=== PATIENT | male | born 1990 | race African-American/Black ===

== ENCOUNTER 2020-08-21 15:44 | Inpatient (IN) ==
[2020-08-21 16:12] LABS: Basophils # (auto) 0.02 K/uL (0-0.2); Basophils % (auto) 0.2 %; Eosinophils % (auto) 1.2 %; Hematocrit (blood only) 45.1 % (42-52); Hemoglobin 14.7 g/dL (14.0-18.0); Immature Granulocytes # (auto) 0.01 K/uL (0.00-0.02); Immature Granulocytes % (auto) 0.1 %; Lymphocytes # (auto) 2.11 K/uL (1.2-3.4); Lymphocytes % (auto) 25.3 %; Mean Corpuscular Hemoglobin 28.6 pg (25-34); Mean Corpuscular Hgb Conc 32.6 g/dL (32-36); Mean Corpuscular Volume 87.7 fL (80-100); Monocytes % (auto) 10.8 %; Neutrophils % (auto) 62.4 %; Platelet Count 221 K/uL (130-400); RDW Coefficient of Variation 12.9 % (11.5-14.5); RDW Standard Deviation 41.3 fL (36.4-46.3); Red Blood Count 5.14 M/uL (4.7-6.1); White Blood Count 8.34 K/uL (4.8-10.8)
[2020-08-21] MEDS ORDERED: SODIUM CHLORIDE 0.9% 1000ML 1,000 ML IV SCH (16:15)
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
[2020-08-21] MEDS ORDERED: MoRPHine SULFATE 4 MG/ML 1 ML CARP\\VIAL IV STA ×2 (16:38→18:20)
[2020-08-21] MEDS ORDERED: ONDANSETRON INJ 2 MG/ML 2 ML VIAL IV STA (16:38)
[2020-08-21 16:44] LABS: Albumin Globulin Ratio 0.8 (0.9-2); Albumin Level 3.7 gm/dl (3.4-5.0); BUN Creatinine Ratio 10.3 (10-20); Bilirubin,Total 0.4 mg/dl (0.2-1); Calcium 8.8 mg/dl (8.5-10.1); Creatinine Clr Calc Pharmacy 148.4 ml/min; Est GFR (Non-African American) 97.5; Globulin 4.5 gm/dl (2.5-4.0); Total Protein 8.2 gm/dl (6.4-8.2)
[2020-08-21] MEDS ORDERED: OPTIRAY 320 125ml IV ONE (17:08)
[2020-08-21 17:15] LABS: Potassium 3.9 mmol/L (3.5-5.1)
[2020-08-21 17:20] LABS: Magnesium 1.7 mg/dl (1.8-2.4)
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
[2020-08-21] MEDS ORDERED: PIPERACILLIN/TAZOBACTAM 4.5 GM/120 ML BAG IV ONE (17:44)
[2020-08-21] MEDS ORDERED: PIPERACILL/TAZOBAC CONSULT ACTIVE PRN (17:44)
[2020-08-21 17:47] LABS: Appearance Urine Clear (Clear); Bilirubin Urine Negative (Negative); Blood Urine Negative (Negative); Color Urine Yellow; Glucose Urine UA 3+ (Negative); Ketones Urine Trace (Negative); Leukocyte Esterase Urine Negative (Negative); Nitrite Urine Negative (Negative); Protein Urine Negative (Negative); Specific Gravity Urine > 1.045 (1.000-1.030); Urobilinogen Urine Negative (Negative)
[2020-08-21 18:52] LABS: Influenza A virus by PCR Negative (Neg); Influenza B virus by PCR Negative (Neg); RSV by PCR Negative (Neg); SARS CoV2 RNA(COVID-19) InHosp NEGATIVE (Negative)
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
[2020-08-21] MEDS ORDERED: ONDANSETRON INJ 2 MG/ML 2 ML VIAL IV PRN (21:17)
[2020-08-21] MEDS ORDERED: INSULIN ASPART 100 UNITS/ML 3 ML PEN SC SCH (21:17)
[2020-08-21] MEDS: HYDROmorphone INJ 0.5 MG/0.5 ML SYR IV PRN (21:42)
[2020-08-21] MEDS: NSS + 20MEQ KCL 20 MEQ/1,000 ML BAG IV SCH (22:23)
[2020-08-21] MEDS: MAGNESIUM SULFATE / D5W 1 GM/100 ML BAG IV SCH ×2 (22:24→23:33)
[2020-08-21] MEDS: METOPROLOL TARTRATE 25 MG TAB PO SCH (22:25)
[2020-08-21] MEDS: INSULIN GLARGINE SOLOSTAR 100 UNITS/ML 3 ML PEN SC SCH (22:27)
[2020-08-21] MEDS: busPIRone 15 MG TAB PO SCH (22:32)
[2020-08-22] MEDS: PIPERACILLIN/TAZOBACTAM 4.5 GM in DEXTROSE 5% 100 ML IV SCH ×4 (00:36→22:47)
[2020-08-22] MEDS: HYDROmorphone INJ 0.5 MG/0.5 ML SYR IV PRN ×3 (00:46→08:25)
[2020-08-22] MEDS: NSS + 20MEQ KCL 20 MEQ/1,000 ML BAG IV SCH ×3 (04:54→19:59)
[2020-08-22] MEDS ORDERED: Nursing to Pharmacy Communication SCH ×2 (05:45→14:45)
[2020-08-22] MEDS ORDERED: GLUCOSE 40% GEL 15 GM TUBE PO PRN (06:00)
[2020-08-22] MEDS ORDERED: CARBOHYDRATES FOR HYPOGLYCEMIA PO PRN (06:00)
[2020-08-22] MEDS ORDERED: GLUCOSE 10 TABS/TUBE PO PRN (06:00)
[2020-08-22] MEDS ORDERED: DEXTROSE 50% 50 ML SYRINGE IV PRN (06:00)
[2020-08-22] MEDS ORDERED: GLUCAGON FOR INJ 1 MG VIAL IM PRN (06:00)
[2020-08-22 06:13] LABS: Basophils # (auto) 0.01 K/uL (0-0.2); Basophils % (auto) 0.1 %; Eosinophils # (auto) 0.08 K/uL (0-0.5); Eosinophils % (auto) 0.8 %; Hematocrit (blood only) 41.8 % (42-52); Hemoglobin 13.7 g/dL (14.0-18.0); Immature Granulocytes # (auto) 0.01 K/uL (0.00-0.02); Immature Granulocytes % (auto) 0.1 %; Lymphocytes % (auto) 16.6 %; Mean Corpuscular Hemoglobin 28.5 pg (25-34); Mean Corpuscular Hgb Conc 32.8 g/dL (32-36); Mean Corpuscular Volume 86.9 fL (80-100); Mean Platelet Volume 10.8 fL (7.4-10.4); Monocytes # (auto) 1.11 K/uL (0.11-0.59); Monocytes % (auto) 11.5 %; Neutrophils # (auto) 6.85 K/uL (1.4-6.5); Neutrophils % (auto) 70.9 %; Platelet Count 221 K/uL (130-400); RDW Standard Deviation 41.7 fL (36.4-46.3); Red Blood Count 4.81 M/uL (4.7-6.1); White Blood Count 9.66 K/uL (4.8-10.8)
[2020-08-22] MEDS: INSULIN ASPART 100 UNITS/ML 3 ML PEN SC SCH ×3 (06:23→18:14)
[2020-08-22 06:48] LABS: BUN Creatinine Ratio 12.2 (10-20); Calcium 8.2 mg/dl (8.5-10.1); Creatinine Clr Calc Pharmacy 160.5 ml/min; Est GFR (African American) 123.1; Est GFR (Non-African American) 106.2; Potassium 4.1 mmol/L (3.5-5.1)
[2020-08-22] MEDS: HEPARIN SOD 5,000 UNIT/0.5 ML VIAL SQ SCH ×3 (07:09→23:04)
--- NOTE | 2020-08-22 07:36 | Electrocardiogram Report ---
Test Reason : Blood Pressure : / mmHG Vent. Rate : 106 BPM Atrial Rate : 106 BPM P-R Int : 172 ms QRS Dur : 088 ms QT Int : 354 ms P-R-T Axes : 042 041 022 degrees QTc Int : 470 ms Sinus tachycardia Otherwise normal ECG No previous ECGs available Confirmed by Jason Mejía [id number]) on 08/22/2020 7:36:20 AM Referred By: [facility] Confirmed By:Jason Mejía
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
[2020-08-22] MEDS: METOPROLOL TARTRATE 25 MG TAB PO SCH ×2 (09:35→20:59)
[2020-08-22] MEDS: lisinopril 2.5 MG TAB PO SCH (09:35)
[2020-08-22] MEDS: ESCITALOPRAM OXALATE 10 MG TAB PO SCH (09:35)
[2020-08-22] MEDS: ARIPiprazole 10 MG TAB PO SCH ×2 (09:35→09:39)
[2020-08-22] MEDS: busPIRone 15 MG TAB PO SCH ×3 (09:35→22:19)
[2020-08-22] MEDS: INSULIN GLARGINE SOLOSTAR 100 UNITS/ML 3 ML PEN SC SCH ×2 (09:37→20:54)
[2020-08-22] MEDS: ACETAMINOPHEN 1,000 MG/100 ML VIAL IV PRN ×2 (12:57→23:03)
[2020-08-22] MEDS: FAMOTIDINE 20 MG in SYRINGE 3 ML IV SCH (14:31)
[2020-08-22] MEDS ORDERED: diphenhydrAMINE Capsule 25 MG CAP PO SCH (18:30)
[2020-08-22] MEDS: diphenhydrAMINE Capsule 25 MG CAP PO SCH (22:19)
[2020-08-23] MEDS: INSULIN ASPART 100 UNITS/ML 3 ML PEN SC SCH ×5 (00:32→20:44)
[2020-08-23] MEDS: NSS + 20MEQ KCL 20 MEQ/1,000 ML BAG IV SCH ×2 (04:45→12:35)
--- NOTE | 2020-08-23 05:31 | Surgery Progress Note ---
Date of Service August 23, 2020 Assessment & Plan (1) Acute diverticulitis: Patient is doing well clinically. We will proceed as follows: Provide analgesics Provide antiemetics Continue antibiotics in the form of Zosyn Continue IV fluids for hydration measures Would continue n.p.o. status until further clinical improvement continues Encourage ambulation Subcu heparin is in place for DVT prevention Admission and Anticipated Discharge Date Admission Date: August 21, 2020 Supervising Physician Co-Signing Physician Notes Patient wanting more to eat states has had a few liquid bowel movements Abdominal exam abdomen no localized tenderness still some guarding left lower quadrant WBCs noted Discussed with the patient now we will advance to full liquid diet likely increase his diet tomorrow if he continues to move his bowels and his abdominal exam continues to improve Subjective Patient denies any fevers, shakes, chills. He notes he continues to have some left lower quadrant abdominal pain but it is no worse than time of admission. He denies any nausea or vomiting. He notes his bowels are working. Physical Exam Gastrointestinal (Abdomen): Abdomen is soft and nondistended. Bowel sounds are present. There is no rebound tenderness or guarding. Pain with deep palpation is noted however in the left lower quadrant. Results & Data ([facility]) Vital Signs (Past 12 Hours) Vital Signs Temp Pulse Resp BP Pulse Ox 08/22/20 23:07 36.9 C 99 H 18 133/84 94 08/22/20 20:57 36.9 C 102 H 14 150/83 H 96 PG Care Time/CCT Total # of Minutes Spent Total Time Spent with Patient: Total time spent is greater than 50% in coordination of care (as documented) at patient's floor/unit and/or counseling patient: Coding Level of Care Code 40735 Subseq Hosp Care Lvl 1 Diagnoses Acute diverticulitis K57.92
[2020-08-23] MEDS: PIPERACILLIN/TAZOBACTAM 4.5 GM in DEXTROSE 5% 100 ML IV SCH ×3 (06:15→22:26)
[2020-08-23] MEDS: HEPARIN SOD 5,000 UNIT/0.5 ML VIAL SQ SCH ×3 (06:18→20:45)
[2020-08-23 06:21] LABS: Basophils # (auto) 0.02 K/uL (0-0.2); Basophils % (auto) 0.2 %; Eosinophils % (auto) 1.7 %; Hematocrit (blood only) 40.1 % (42-52); Hemoglobin 13.2 g/dL (14.0-18.0); Immature Granulocytes # (auto) 0.02 K/uL (0.00-0.02); Immature Granulocytes % (auto) 0.2 %; Lymphocytes # (auto) 1.84 K/uL (1.2-3.4); Lymphocytes % (auto) 15.9 %; Mean Corpuscular Hemoglobin 29.1 pg (25-34); Mean Corpuscular Hgb Conc 32.9 g/dL (32-36); Mean Corpuscular Volume 88.3 fL (80-100); Mean Platelet Volume 10.7 fL (7.4-10.4); Monocytes # (auto) 1.28 K/uL (0.11-0.59); Monocytes % (auto) 11.1 %; Neutrophils # (auto) 8.18 K/uL (1.4-6.5); Neutrophils % (auto) 70.9 %; Platelet Count 207 K/uL (130-400); RDW Coefficient of Variation 13.1 % (11.5-14.5); RDW Standard Deviation 42.7 fL (36.4-46.3); Red Blood Count 4.54 M/uL (4.7-6.1); White Blood Count 11.54 K/uL (4.8-10.8)
[2020-08-23 06:52] LABS: Albumin Level 2.8 gm/dl (3.4-5.0); BUN Creatinine Ratio 13.5 (10-20); Calcium 8.2 mg/dl (8.5-10.1); Creatinine Clr Calc Pharmacy 200.6 ml/min; Est GFR (African American) 140.9; Est GFR (Non-African American) 121.6
[2020-08-23 06:53] LABS: Albumin Globulin Ratio 0.7 (0.9-2); Bilirubin,Total 1.3 mg/dl (0.2-1); Globulin 4.1 gm/dl (2.5-4.0); Total Protein 6.9 gm/dl (6.4-8.2)
[2020-08-23] MEDS: FAMOTIDINE 20 MG in SYRINGE 3 ML IV SCH (07:44)
[2020-08-23 07:50] LABS: Magnesium 2.2 mg/dl (1.8-2.4)
[2020-08-23] MEDS ORDERED: Nursing to Pharmacy Communication SCH (08:00)
[2020-08-23] MEDS: METOPROLOL TARTRATE 25 MG TAB PO SCH ×2 (08:06→22:25)
[2020-08-23] MEDS: ARIPiprazole 10 MG TAB PO SCH (08:07)
[2020-08-23] MEDS: ESCITALOPRAM OXALATE 10 MG TAB PO SCH (08:07)
[2020-08-23] MEDS: busPIRone 15 MG TAB PO SCH ×2 (08:07→20:46)
[2020-08-23] MEDS: lisinopril 2.5 MG TAB PO SCH (08:07)
--- NOTE | 2020-08-23 08:59 | Hospitalist Progress Note ---
Date of Service August 23, 2020 Assessment & Plan (1) Acute diverticulitis: acute distal colonic diverticulitis with minimal amount of microperforation. * Continue IV zosyn. * IVF NS+20K @ 125cc/hr -- can decrease to 75c/hr while on full liquids but likely d/c this evening if tolerating diet without issues * General surgery on consult -- advanced to full liquid today * WBC elevated but did have some vomiting last evening. No further temp since low grade yesterday morning * Continue pain control, antiemetics prn * BCx NGTD -- follow * will need outpatient colonoscopy in 8 weeks to evaluate colon. * Continue to monitor AM labs, electrolyte replacement as needed (2) Type 2 diabetes mellitus: * hold metformin. * start lantus 10 units BID. * novolog correction with carb coverage once eating -- increased CF * check a1c while here -- added to AM labs and pending * Started on low dose lisinopril given HTN and DM * Continue to monitor (3) Depression: * cont outpatient meds (4) Anxiety: * continue outpatient meds (5) H/O psychosis: * noted * continue abilify * no psychotic symptoms at this time (6) Morbid obesity: * BMI 42.7 (7) Hypomagnesemia: * Mag 1.7 -- 2 grams mag sulfate * repeat mag in am --> wnl at 2.0 * Continue to monitor (8) Elevated blood pressure reading without diagnosis of hypertension: * BPs markedly elevated in ER * no formal dx of HTN in past * could be pain related * however, given severity of elevation and strong possibility he simply has undiagnosed HTN and was started on metoprolol 25mg BID * Also added lisinopril low dose 08/22 given DM -- could consider decreased BB given GUALBERTO * Continue to monitor --> currently 132/82 *Of note, renal cyst on CTAP and will need f/u non-emergent imaging for monitoring (9) DVT prophylaxis: heparin 7500 units TID COVID screen negative DIspo: continued inpatient stay possible d/c tomorrow vs Monday on oral abx Admission and Anticipated Discharge Date Admission Date: August 21, 2020 Subjective Patient evaluated this afternoon. Episode of emesis yesterday but nothing since. Feeling much better. Tolerated clear liquids for breakfast and abdominal pain improved. Continued to have bowel movements but states they are forming. Minimal discomfort deep LLQ but non-tender to palpation. No fever, chills, chest pain, shortness of breath, nausea, vomiting, dysuria at this time. Will continue full liquid diet for today and possible advance to low fiber in AM. He would like to be discharged tomorrow if stable and continues to feel well. Will have to continue to monitor. Review of Systems Review of Systems: All systems reviewed & are unremarkable except as noted in HPI & below Physical Exam Constitutional: well developed, well nourished, + morbidly obese and comfortable; no acute distress and no altered mental status Eyes: PERRL, conjunctivae normal, anicteric sclerae ENMT: Mouth: + dry oral mucous membranes (IMPROVED, slightly dry) Neck: trachea midline, no thyromegaly Respiratory: normal respiratory effort, lungs clear to auscultation Cardiovascular: RRR, no murmur, no edema Heart Sounds: normal S1 and normal S2 Vessels: posterior tibial pulses present and dorsalis pedis pulses present; no JVD Gastrointestinal (Abdomen): Inspection/Auscultation: + abdomen distended (less) and normal bowel sounds Percussion/Palpation: abdomen nontender (very minimal discomfort LLQ on deep palpation), no guarding, abdomen not rigid and no hepatosplenomegaly Musculoskeletal: no cyanosis or clubbing, extremities motor strength 5/5 Neurologic: deep tendon reflexes 2+ bilaterally and moves all extremities Psychiatric: Orientation: alert and oriented x 3 Lymphatic: no cervical lymphadenopathy Results & Data Results & Data ([facility]) Vital Signs (Past 12 Hours) Vital Signs Temp Pulse Resp BP Pulse Ox 08/23/20 07:20 36.8 C 88 16 132/82 94 08/22/20 23:07 36.9 C 99 H 18 133/84 94 Laboratory Results 08/23/20 08/23/20 08/23/20 Range/Units 08:05 06:58 06:12 WBC (4.8-10.8) K/uL RBC (4.7-6.1) M/uL Hgb (14.0-18.0) g/dL Hct (42-52) % MCV (80-100) fL MCH (25-34) pg MCHC (32-36) g/dL RDW Std Deviation (36.4-46.3) fL RDW Coeff of Vianca (11.5-14.5) % Plt Count (130-400) K/uL MPV (7.4-10.4) fL Immature Gran % (Auto) % Neut % (Auto) % Lymph % (Auto) % Smith % (Auto) % Eos % (Auto) % Baso % (Auto) % Neut # (Auto) (1.4-6.5) K/uL Lymph # (Auto) (1.2-3.4) K/uL Smith # (Auto) (0.11-0.59) K/uL Eos # (Auto) (0-0.5) K/uL Baso # (Auto) (0-0.2) K/uL Immature Gran # (Auto) (0.00-0.02) K/uL Sodium (136-145) mmol/L Potassium 4.0 (3.5-5.1) mmol/L Chloride (98-107) mmol/L Carbon Dioxide (21-32) mmol/L Anion Gap (3-11) BUN (7-18) mg/dl Creatinine (0.6-1.4) mg/dl Est Cr Clr Drug Dosing ml/min Est GFR ( Amer) Est GFR (Non-Af Amer) BUN/Creatinine Ratio (10-20) Glucose (70-99) mg/dl POC Glucose 163 H 142 H (70-99) mg/dl Estimat Average Glucose Hemoglobin A1c Calcium (8.5-10.1) mg/dl Magnesium 2.2 (1.8-2.4) mg/dl Total Bilirubin (0.2-1) mg/dl AST 14 L (15-37) U/L ALT (12-78) U/L Alkaline Phosphatase (45-117) U/L Total Protein (6.4-8.2) gm/dl Albumin (3.4-5.0) gm/dl Globulin (2.5-4.0) gm/dl Albumin/Globulin Ratio (0.9-2) 08/23/20 08/23/20 08/23/20 Range/Units 05:52 05:52 05:52 WBC 11.54 H (4.8-10.8) K/uL RBC 4.54 L (4.7-6.1) M/uL Hgb 13.2 L (14.0-18.0) g/dL Hct 40.1 L (42-52) % MCV 88.3 (80-100) fL MCH 29.1 (25-34) pg MCHC 32.9 (32-36) g/dL RDW Std Deviation 42.7 (36.4-46.3) fL RDW Coeff of Vianca 13.1 (11.5-14.5) % Plt Count 207 (130-400) K/uL MPV 10.7 H (7.4-10.4) fL Immature Gran % (Auto) 0.2 % Neut % (Auto) 70.9 % Lymph % (Auto) 15.9 % Smith % (Auto) 11.1 % Eos % (Auto) 1.7 % Baso % (Auto) 0.2 % Neut # (Auto) 8.18 H (1.4-6.5) K/uL Lymph # (Auto) 1.84 (1.2-3.4) K/uL Smith # (Auto) 1.28 H (0.11-0.59) K/uL Eos # (Auto) 0.20 (0-0.5) K/uL Baso # (Auto) 0.02 (0-0.2) K/uL Immature Gran # (Auto) 0.02 (0.00-0.02) K/uL Sodium 136 (136-145) mmol/L Potassium (3.5-5.1) mmol/L Chloride 106 (98-107) mmol/L Carbon Dioxide 26 (21-32) mmol/L Anion Gap 4.0 (3-11) BUN 10 (7-18) mg/dl Creatinine 0.76 (0.6-1.4) mg/dl Est Cr Clr Drug Dosing 200.6 ml/min Est GFR ( Amer) 140.9 Est GFR (Non-Af Amer) 121.6 BUN/Creatinine Ratio 13.5 (10-20) Glucose 164 H (70-99) mg/dl POC Glucose (70-99) mg/dl Estimat Average Glucose Pending Hemoglobin A1c Pending Calcium 8.2 L (8.5-10.1) mg/dl Magnesium (1.8-2.4) mg/dl Total Bilirubin 1.3 H D (0.2-1) mg/dl AST (15-37) U/L ALT 50 (12-78) U/L Alkaline Phosphatase 82 (45-117) U/L Total Protein 6.9 (6.4-8.2) gm/dl Albumin 2.8 L (3.4-5.0) gm/dl Globulin 4.1 H (2.5-4.0) gm/dl Albumin/Globulin Ratio 0.7 L (0.9-2) 08/23/20 08/22/20 08/22/20 Range/Units 00:06 18:14 12:10 WBC (4.8-10.8) K/uL RBC (4.7-6.1) M/uL Hgb (14.0-18.0) g/dL Hct (42-52) % MCV (80-100) fL MCH (25-34) pg MCHC (32-36) g/dL RDW Std Deviation (36.4-46.3) fL RDW Coeff of Vianca (11.5-14.5) % Plt Count (130-400) K/uL MPV (7.4-10.4) fL Immature Gran % (Auto) % Neut % (Auto) % Lymph % (Auto) % Smith % (Auto) % Eos % (Auto) % Baso % (Auto) % Neut # (Auto) (1.4-6.5) K/uL Lymph # (Auto) (1.2-3.4) K/uL Smith # (Auto) (0.11-0.59) K/uL Eos # (Auto) (0-0.5) K/uL Baso # (Auto) (0-0.2) K/uL Immature Gran # (Auto) (0.00-0.02) K/uL Sodium (136-145) mmol/L Potassium (3.5-5.1) mmol/L Chloride (98-107) mmol/L Carbon Dioxide (21-32) mmol/L Anion Gap (3-11) BUN (7-18) mg/dl Creatinine (0.6-1.4) mg/dl Est Cr Clr Drug Dosing ml/min Est GFR ( Amer) Est GFR (Non-Af Amer) BUN/Creatinine Ratio (10-20) Glucose (70-99) mg/dl POC Glucose 195 H 189 H 185 H (70-99) mg/dl Estimat Average Glucose Hemoglobin A1c Calcium (8.5-10.1) mg/dl Magnesium (1.8-2.4) mg/dl Total Bilirubin (0.2-1) mg/dl AST (15-37) U/L ALT (12-78) U/L Alkaline Phosphatase (45-117) U/L Total Protein (6.4-8.2) gm/dl Albumin (3.4-5.0) gm/dl Globulin (2.5-4.0) gm/dl Albumin/Globulin Ratio (0.9-2) 08/22/20 Range/Units 09:37 WBC (4.8-10.8) K/uL RBC (4.7-6.1) M/uL Hgb (14.0-18.0) g/dL Hct (42-52) % MCV (80-100) fL MCH (25-34) pg MCHC (32-36) g/dL RDW Std Deviation (36.4-46.3) fL RDW Coeff of Vianca (11.5-14.5) % Plt Count (130-400) K/uL MPV (7.4-10.4) fL Immature Gran % (Auto) % Neut % (Auto) % Lymph % (Auto) % Smith % (Auto) % Eos % (Auto) % Baso % (Auto) % Neut # (Auto) (1.4-6.5) K/uL Lymph # (Auto) (1.2-3.4) K/uL Smith # (Auto) (0.11-0.59) K/uL Eos # (Auto) (0-0.5) K/uL Baso # (Auto) (0-0.2) K/uL Immature Gran # (Auto) (0.00-0.02) K/uL Sodium (136-145) mmol/L Potassium (3.5-5.1) mmol/L Chloride (98-107) mmol/L Carbon Dioxide (21-32) mmol/L Anion Gap (3-11) BUN (7-18) mg/dl Creatinine (0.6-1.4) mg/dl Est Cr Clr Drug Dosing ml/min Est GFR ( Amer) Est GFR (Non-Af Amer) BUN/Creatinine Ratio (10-20) Glucose (70-99) mg/dl POC Glucose 190 H (70-99) mg/dl Estimat Average Glucose Hemoglobin A1c Calcium (8.5-10.1) mg/dl Magnesium (1.8-2.4) mg/dl Total Bilirubin (0.2-1) mg/dl AST (15-37) U/L ALT (12-78) U/L Alkaline Phosphatase (45-117) U/L Total Protein (6.4-8.2) gm/dl Albumin (3.4-5.0) gm/dl Globulin (2.5-4.0) gm/dl Albumin/Globulin Ratio (0.9-2) PG Care Time/CCT Total # of Minutes Spent Total Time Spent with Patient: Total time spent is greater than 50% in coordination of care (as documented) at patient's floor/unit and/or counseling patient: Coding Level of Care Code 01561 Subseq Hosp Care Lvl 3 Diagnoses Acute diverticulitis K57.92 Type 2 diabetes mellitus E11.9 Depression F32.9 Anxiety F41.9 H/O psychosis Z86.59 Morbid obesity E66.01 Hypomagnesemia E83.42 Elevated blood pressure reading without diagnosis of hypertension R03.0 DVT prophylaxis Z29.9
[2020-08-23] MEDS: INSULIN GLARGINE SOLOSTAR 100 UNITS/ML 3 ML PEN SC SCH ×2 (09:08→20:44)
[2020-08-23] MEDS: diphenhydrAMINE Capsule 25 MG CAP PO SCH (20:45)
[2020-08-24] MEDS: PIPERACILLIN/TAZOBACTAM 4.5 GM in DEXTROSE 5% 100 ML IV SCH ×2 (05:30→13:52)
[2020-08-24] MEDS: HEPARIN SOD 5,000 UNIT/0.5 ML VIAL SQ SCH (05:30)
[2020-08-24 06:30] LABS: Estimated Average Glucose 255 mg/dl; Hemoglobin A1C 10.5 % (4.5-5.6)
[2020-08-24 07:06] LABS: Basophils # (auto) 0.02 K/uL (0-0.2); Basophils % (auto) 0.3 %; Eosinophils % (auto) 3.8 %; Hematocrit (blood only) 39.3 % (42-52); Immature Granulocytes # (auto) 0.02 K/uL (0.00-0.02); Immature Granulocytes % (auto) 0.3 %; Lymphocytes # (auto) 2.38 K/uL (1.2-3.4); Lymphocytes % (auto) 30.1 %; Mean Corpuscular Hemoglobin 28.9 pg (25-34); Mean Corpuscular Hgb Conc 33.1 g/dL (32-36); Mean Corpuscular Volume 87.3 fL (80-100); Mean Platelet Volume 10.5 fL (7.4-10.4); Monocytes # (auto) 0.63 K/uL (0.11-0.59); Neutrophils # (auto) 4.57 K/uL (1.4-6.5); Neutrophils % (auto) 57.5 %; Platelet Count 242 K/uL (130-400); White Blood Count 7.92 K/uL (4.8-10.8)
[2020-08-24 07:32] LABS: Albumin Level 2.7 gm/dl (3.4-5.0); BUN Creatinine Ratio 11.8 (10-20); Bilirubin Direct 0.2 mg/dl (0-0.2); Calcium 8.3 mg/dl (8.5-10.1); Creatinine Clr Calc Pharmacy 195.4 ml/min; Est GFR (African American) 139.4; Est GFR (Non-African American) 120.3; Potassium 4.1 mmol/L (3.5-5.1)
[2020-08-24 07:35] LABS: Bilirubin,Total 0.9 mg/dl (0.2-1); Total Protein 7.2 gm/dl (6.4-8.2)
--- NOTE | 2020-08-24 08:19 | Surgery Progress Note ---
Date of Service August 24, 2020 Assessment & Plan (1) Acute diverticulitis: WBC normal afebrile and HR normal low fiber diet ok for d/c on po abx if tolerates diet Admission and Anticipated Discharge Date Admission Date: August 21, 2020 Subjective BM's forming, wants regular food, no fever/chills Physical Exam Gastrointestinal (Abdomen): Percussion/Palpation: abdomen soft; abdomen nontender Results & Data ([facility]) Vital Signs (Past 12 Hours) Vital Signs Temp Pulse Pulse Resp BP BP Pulse Ox 08/24/20 07:41 36.4 C L 78 16 111/74 98 08/23/20 22:23 37 C 87 16 125/75 92 08/23/20 20:42 94 H 130/83 PG Care Time/CCT Total # of Minutes Spent Total Time Spent with Patient: Total time spent is greater than 50% in coordination of care (as documented) at patient's floor/unit and/or counseling patient: Coding Level of Care Code 82418 Subseq Hosp Care Lvl 1 Diagnoses Acute diverticulitis K57.92
[2020-08-24] MEDS: INSULIN ASPART 100 UNITS/ML 3 ML PEN SC SCH ×2 (08:33→13:11)
[2020-08-24] MEDS: INSULIN GLARGINE SOLOSTAR 100 UNITS/ML 3 ML PEN SC SCH (08:33)
[2020-08-24] MEDS: FAMOTIDINE 20 MG in SYRINGE 3 ML IV SCH (08:34)
[2020-08-24] MEDS: lisinopril 2.5 MG TAB PO SCH (08:35)
[2020-08-24] MEDS: ESCITALOPRAM OXALATE 10 MG TAB PO SCH (08:35)
[2020-08-24] MEDS: busPIRone 15 MG TAB PO SCH (08:35)
[2020-08-24] MEDS: METOPROLOL TARTRATE 25 MG TAB PO SCH (08:35)
[2020-08-24] MEDS: ARIPiprazole 10 MG TAB PO SCH (08:36)
--- NOTE | 2020-08-24 16:39 | Discharge Summary ---
Date of Service August 24, 2020 Admission HPI Per Admitting Provider 29yo AA male - prisoner at [facility] - with h/o T2DM and psychotic disorder NOS ("I have heard voices before") presents with 2 days of LLQ abdominal pain. Constant, sharp, and associated with nausea and lack of appetite. Had small liquid-like stool last night. No blood per rectum. No vomiting. Has had subjective fever and sweats. Principal Diagnosis Acute diverticulitis Discharge Exam Constitutional WD/WN, vitals as above Eyes EOM intact bilaterally; no conjunctival abnormality ENMT external ear and nose normal, oropharynx normal Neck trachea midline, no thyromegaly normal visual inspection Respiratory normal respiratory effort, lungs clear to auscultation no respiratory distress Cardiovascular RRR, no murmur, no edema Gastrointestinal (Abdomen) Inspection/Auscultation: abdomen normal to inspection; abdomen not distended Musculoskeletal no cyanosis or clubbing, extremities motor strength 5/5 Skin no rashes, warm and dry Neurologic moves all extremities and awake Psychiatric Orientation: alert, oriented to person and cooperative Discharge Data Allergies Allergy/AdvReac Type Severity Reaction Status Date / Time No Known Allergies Allergy Unverified 08/21/20 16:19 Consultations 08/21/20 18:12 ED Decision to Admit Stat 08/21/20 21:17 Consult General Surgery Routine Ordered Studies 08/21/20 16:04 CT abd pelvis IV con only Stat Diabetes Follow up Diabetes Follow-up Needed for HgbA1c >9% Hospital Course (1) Acute diverticulitis: acute distal colonic diverticulitis with minimal amount of microperforation. * Continue IV zosyn. * IVF NS+20K @ 125cc/hr -- can decrease to 75c/hr while on full liquids but likely d/c this evening if tolerating diet without issues * General surgery on consult -- advanced to normal diet today * WBC elevated but did have some vomiting last evening. No further temp since low grade yesterday morning. * Continue pain control, antiemetics prn * BCx NGTD -- follow * * will need outpatient colonoscopy in 8 weeks to evaluate colon. * Continue to monitor AM labs, electrolyte replacement as needed (2) Type 2 diabetes mellitus: * hold metformin. * start lantus 10 units BID. * novolog correction with carb coverage once eating -- increased CF * Continue to monitor (3) Depression: * cont outpatient meds (4) Anxiety: * continue outpatient meds (5) H/O psychosis: * noted * continue abilify * no psychotic symptoms at this time (6) Morbid obesity: * BMI 42.7 (7) Hypomagnesemia: * Mag 1.7 -- 2 grams mag sulfate * repeat mag in am --> wnl at 2.0 * Continue to monitor (8) Elevated blood pressure reading without diagnosis of hypertension: * BPs markedly elevated in ER * no formal dx of HTN in past * could be pain related - Will need BP recheck in 1 week. If consistently high, could consider an ACEi given his diabetes. *Of note, renal cyst on CTAP and will need f/u non-emergent imaging for monitoring (9) DVT prophylaxis: heparin 7500 units TID COVID screen negative Total Time Total Time Spent Total Time Spent (In Minutes): 35 Discharge Plan Discharge Items [facility] Reason For Visit: ACUTE DIVERTICULITIS Discharge Diagnosis: Acute diverticulitis Condition on Discharge: Good Activity: Resume your previous activity Non-emergency contact: Primary Care Provider Call non-emergency contact if: your symptoms worsen Follow-up/Referrals: Jennifer DAN [Primary Care Provider] - Diet: Low Fiber Addtl Attending Provider Instructions: Low fiber diet for several more days, then re-introduce normal diet. Antibiotics for 1 more week (Augmentin). Could consider starting lisinopril. BP was elevated here initially, though this could have also been from pain. Would warrant a BP check in 1-2 weeks. Pending Studies at Discharge: No Stand-Alone Forms: My [facility] Skilled Items Patient informed of condition?: Yes Discharge Level of Care: Other Communicable Disease: No Discharge Prognosis: Improving Lines: None Urinary Catheter: No Medications and DC Order Prescriptions: New amoxicillin-pot clavulanate [Augmentin] 875-125 mg tablet 1 tab PO BID Qty: 1 RF: 0 Continued diphenhydramine HCl 50 mg Capsule 50 mg PO DAILY@1830 RF: 0 escitalopram oxalate [Lexapro] 10 mg Tablet 10 mg PO DAILY RF: 0 metformin 500 mg Tablet 500 mg PO BID RF: 0 buspirone 15 mg Tablet 15 mg PO BID RF: 0 aripiprazole 10 mg Tablet 10 mg PO DAILY RF: 0 Hemorrhoidal Ointment 1 ea VA BID RF: 0 Discharge Orders: Discharge Order (Routine); Ordered 08/24/20 Ordered By: Hemant Garcia Admission Data Admit Date/Time: 08/21/20 19:47 Attending Provider: Hemant Garcia Admit Provider: Jefferson Slater Primary Care Provider: Jennifer DAN Other Providers: Pedro Shabazz ; Hemant Garcia Other Interventions: Discharge Summary Assessment (RN) Last Done: 08/24/20 13:18 Coding Level of Care Code D/C Day Management >30 mins Diagnoses Acute diverticulitis K57.92 Type 2 diabetes mellitus E11.9 Depression F32.9 Anxiety F41.9 H/O psychosis Z86.59 Morbid obesity E66.01 Hypomagnesemia E83.42 Elevated blood pressure reading without diagnosis of hypertension R03.0 DVT prophylaxis Z29.9
== END 2020-08-24 14:48 | DRG 392 ==
LOC: ED 15:44 → 3N 19:47 → SUATTDRO 19:47 → 3N 21:01